=== PATIENT | male | born 1950 | race Caucasian/White ===

== ENCOUNTER → 2020-05-14 14:09 | Outpatient (CLI) | payer OTHER, SELFPAY ==
[2020-05-15 14:19] LABS: COVID19 Sendout Not Detected (Not Detect)
== END ==
PROVIDERS: Family Provider Family Medicine; PCP Family Medicine; Visit Provider Physician Assistant
DX: Z11.59 Encounter for screening for other viral diseases (principal)
CPT/HCPCS: 87635

== ENCOUNTER 2020-05-17 12:00 | Day surgery (SDC) | payer OTHER, SELFPAY ==
--- NOTE | 2020-05-17 11:00 | P.HP_ITS ---
History of Present Illness History of Present Illness Date Patient Seen: 05/17/20 Chief complaint: SDC Narrative: 69 year old male comes in today for consideration of a screening colonoscopy. Last colonoscopy in 2008 indicated for screening, showed an ascending colon tubular adenoma. He had a recent bike trip 6 weeks ago that resulted in a diarrheal illness after consuming raw oysters. Stool studies negative. CBC, CMP ESR on 04/24/20 significant for an elevated white count at 17.8 and an elevated sed rate at 76. He also had a very minor drop in hemoglobin/hematocrit at 13.1/38.7 respectively. Diarrhea is now resolved after antibiotics. Otherwise, There have been no lower GI symptoms suggesting disease such as bleeding, abdominal pain or anemia. There's been no family history of colon cancer or colon polyps. Overall health issues have been stable, including no major cardiac events for at least 6 weeks. PCP: Dr. Crawley Past medical history: CKD stage 3 Diarrhea erectile dysfunction Hyperlipidemia Depression Carpal syndrome gout Obstructive sleep apnea idiopathic urticaria Past surgical history: Right lateral compartment arthroplasty, 2010 Family history: Noncontributory Social history: , retired. Meds Home Medications and Allergies Home Medications Medication Instructions Recorded Confirmed Type ROSUVASTATIN CALCIUM (Crestor) 20 mg PO Q DAY #0 03/05/10 History Resmed Airsense 10 CPAP #1 ea 02/01/19 02/01/19 History indomethacin 50 mg PO TID 05/17/20 05/17/20 History rosuvastatin [Crestor] 20 mg PO DAILY 05/17/20 05/17/20 History sertraline 25 mg PO DAILY 05/17/20 05/17/20 History sildenafil 20 mg PO DAILY 05/17/20 05/17/20 History Allergies Allergy/AdvReac Type Severity Reaction Status Date / Time No Known Drug Allergies Allergy Verified 05/17/20 13:27 Review of Systems Review of Systems ROS: Yes All systems reviewed with the patient and are negative except as otherwise documented Exam Narrative Exam Narrative: GENERAL: Alert and oriented, appearing stated age and in no acute distress. HEENT: Head normocephalic/atraumatic. Pupils equal, round, and reactive to light and accomodation. Extraocular muscles intact. Tympanic membranes clear. Nasal mucosa moist, septum midline. Oral mucosa moist, no lesions. Neck soft and supple, no lymphadenopathy. LUNGS: Clear to ausculation bilaterally, no wheezes, rhonchi or rales. CV: Normal S1 and S2 with regular rate and rhythm, no audible murmurs, rubs or gallops. ABDOMEN: Soft, non-tender, non-distended, no organomegaly. Positive bowel susan nds. EXTREMITIES: No clubbing, cyanosis, or edema. NEURO: Cranial nerves II through XII grossly intact, no focal deficits. PSYCH: Alert and oriented x 3. SKIN: No concerning lesions. Assessment & Plan Assessment & Plan narrative: 1. History of colon polyps 2. Screening for colon cancer Plan for colonoscopy. The nature and character of the procedure as well as anticipated results were discussed. The possibility of not completing the procedure was also discussed. Possible complications including aspiration pneumonia, bleeding, perforation and reaction to medications either for sedation or preparation and missed lesions were discussed. Questions were answered and proceeding to the colonoscopy was elected. Informed consent signed. I sincerely appreciate the referral allowing me to participate in this patient's care. Please contact me with any questions or concerns.
--- NOTE | 2020-05-17 11:10 | PM.OP.ENDO ---
Operative Date/Time/Diagnoses Date of procedure: 05/17/20 Procedure Notes SCOAP/Timeout: 2:29 p.m. Procedure in detail: ENDOSCOPIST: Kellee Catherine MD Sedation RN: Lesley Lindsay RN Sedation start time: 2:30 p.m. Sedation end time: 2:50 p.m. PROCEDURE: Colonoscopy INDICATIONS: 1. History of colon polyps 2. Screening for colon cancer MEDICATION: Levsin 0.125 mg sublingual, incremental doses of Versed and fentanyl until appropriate level sedation achieved. ASA CLASS: 2 CECAL WITHDRAWAL TIME: 8 minutes COMPLICATIONS: None. EXTENT OF PROCEDURE: Cecum. QUALITY OF PREP: Good with portions of liquid stool. PROCEDURE: Prior to insertion of the colonoscope, a digital rectal examination was accomplished with circumferential palpation of the distal rectal mucosa without significant findings being noted. The high-definition colonoscope was passed into the rectum in the usual fashion and advanced over to the cecum without difficulty. The ileocecal valve, appendiceal stoma, and medial wall all could be inspected and no abnormalities were seen. ASCENDING COLON: As the colonoscope was withdrawn, care was taken to expose and inspect the haustral folds and no abnormalities were seen. HEPATIC FLEXURE: Normal, no polyps, diverticula or other abnormalities. TRANSVERSE COLON: Normal, no polyps, diverticula or other abnormalities. DESCENDING COLON: Normal, no polyps, diverticula or other abnormalities. SIGMOID COLON: Normal, no polyps, diverticula or other abnormalities. RECTUM: Normal. J maneuver was produced, prominent veins were noted. There was no significant perianal disease. The J maneuver was broken. The remainder of the rectum was inspected and there was no external hemorrhoid disease. The scope was withdrawn. IMPRESSION: 1. Normal colonoscopy 2. Prominent rectal veins PLAN: 1. Repeat colonoscopy in 5 years secondary to history of colon polyps. The possibility of a missed lesion including a malignancy has been discussed with the patient previously. Potential alarm symptoms have been discussed and should be reported immediately. Post-procedure Recommendations: Colonscopy in 5 years Follow up: as needed
[2020-05-17] MEDS: LACTATED RINGERS 1,000 ML 200 ML IV (13:26)
[2020-05-17] MEDS: HYOSCYAMINE 0.125 MG TABLET PO (13:26)
[2020-05-17 13:35] VITALS: BP 127/73; PULSE 62; RESP 16; TEMP 36.6; O2SAT 97; BMI 30.4
--- NOTE | 2020-05-17 13:55 | SUR.PREOP ---
Patient states that he registered early because his results from his prep were brown. Patient states he called Dr Catherine's office to voice concern. Patient states that his results are brown but nothing solid. Notified Dr Catherine.
[2020-05-17] MEDS: MIDAZOLAM 5 MG/5 ML VIAL IV (14:30)
[2020-05-17] MEDS: fentaNYL 250 MCG/5 ML INJ IV (14:30)
[2020-05-17 14:56] VITALS: BP 113/70; PULSE 69; RESP 16; TEMP 36.7; O2SAT 97
[2020-05-17 15:01] VITALS: BP 124/68; PULSE 61; RESP 17; TEMP 36.6; O2SAT 97
[2020-05-17 15:07] VITALS: BP 120/71; PULSE 58; RESP 15; TEMP 36.2; O2SAT 97
[2020-05-17 15:10] VITALS: BP 120/71; PULSE 58; RESP 17; TEMP 36.4; O2SAT 96
== END 2020-05-17 15:26 | disposition home or self-care (01) ==
PROVIDERS: PCP Family Medicine; Referring Provider Family Medicine; Visit Provider Student in an Organized Health Care Education/Training Program
PROC: 0DJD8ZZ Inspection of Lower Intestinal Tract, Via Natural or Artificial Opening Endoscopic (ICD-10-PCS; CPT 45378; principal; 2020-05-17 14:30)
DX: Z12.11 Encounter for screening for malignant neoplasm of colon (principal); N18.3 Chronic kidney disease, stage 3 (moderate); G47.33 Obstructive sleep apnea (adult) (pediatric); F32.9 Major depressive disorder, single episode, unspecified; E78.5 Hyperlipidemia, unspecified
CPT/HCPCS: G0121; J2250; J3010

== ENCOUNTER → 2020-09-13 10:25 | Outpatient (CLI) | payer OTHER, SELFPAY ==
[2020-09-13 11:10] LABS: COVID19 -Nasal RAPID Negative (Negative)
== END ==
PROVIDERS: PCP Family Medicine; Visit Provider Surgery
DX: Z20.822 Contact with and (suspected) exposure to COVID-19 (principal); Z01.812 Encounter for preprocedural laboratory examination
CPT/HCPCS: 87635; C9803

== ENCOUNTER 2020-09-16 06:44 | Day surgery (SDC) | payer OTHER, SELFPAY ==
[2020-09-16] VITALS (7 sets, daily range): BP systolic 117–142; BP diastolic 70–86; PULSE 59–68; RESP 10–17; TEMP 36.3–36.9; O2SAT 92–97; BMI 31.5
--- NOTE | 2020-09-16 | PATH_ITS ---
[facility] Accession Number: [id number] . 01 Material submitted: . duodenum - DUODENUM BIOPSY . 02 Diagnosis: Duodenum, Biopsy: Duodenal mucosa with no diagnostic abnormality. Negative for active inflammation, features of sprue, dysplasia, or malignancy. . MRV 09/18/2020 1417 Local . 02 Electronically signed: . Ariel Kraft MD, PhD, Pathologist NPI- [id number] . 01 Gross description: . The specimen is received in formalin, labeled duodenum and consists of two cobian-pink fragments of soft tissue, measuring 0.4 x 0.3 x 0.2 cm in aggregate. The specimen is entirely submitted in cassette A1. ([id number]) /[facility] 09/17/2020 1749 Local . 02 Pathologist provided ICD-10: R13.10, R10.9 . 02 CPT . 244253 Performed at: 01 [facility] [address] [place] [address], [place], [place] [id number] MD Josiah Lamar MD Phone: [phone] Performed at: 02 [facility] [address] [place], [place] [id number] MD Sophie Cerda MD Phone: [phone]
[2020-09-16] MEDS: LACTATED RINGERS 1,000 ML 200 ML IV (07:14)
--- NOTE | 2020-09-16 07:52 | PM.PREOP ---
Pre-operative Note COVID-19 COVID-19 status: Negative Interval Note History & Physical reviewed/Exam performed by Physician: Yes Changes to H&P: No
[2020-09-16] MEDS: fentaNYL 250 MCG/5 ML INJ IV (07:56)
[2020-09-16] MEDS: MIDAZOLAM 5 MG/5 ML VIAL IV (07:56)
[2020-09-16] MEDS: LIDOCAINE 4% SOLN 50 ML 20 ML TOP (07:59)
--- NOTE | 2020-09-16 08:11 | PM.OP.ENDO ---
Operative Date/Time/Diagnoses Date of procedure: 09/16/20 Time of procedure: 08:11 Pre-op diagnosis: Dysphagia Post-op diagnosis: other (Oral candidiasis) Procedure & Clinicians Study performed: Esophagoduodenoscopy Same procedure as scheduled: Yes Indications: Dysphagia Surgeon: Konstantin Maurer Procedure Notes Procedure in detail: Patient placed in left lateral decubitus position. Time out was performed. Procedural sedation was administered with Versed and Fentanyl. A bite block was placed. the scope was inserted into the mouth. In the posterior pharynx oral candidiasis was observed. The scope was advanced through the esophagus and into the stomach. The pylorus was intubated. The duodenum appeared mildly inflamed a some random biopsies of the duodenum were obtained. The scope was retroflexed within the stomach and there was a small hiatal hernia. No ulcers, or gastritis. The scope was withdrawn into the esophagus the Z line was seen at 40 cm from the incisions. There was no Celaya's esophagitis or masses or strictures. Stomach was desufflated and scope removed. Patient tolerated procedure well. Specimen(s): other (Duodenal biopsy) Complications: none Impression: Oral candidiasis Post-procedure Recommendations: Start medication(s) (Nystatin) Disposition: same day surgery
== END 2020-09-16 08:59 | disposition home or self-care (01) ==
PROVIDERS: PCP Family Medicine; Referring Provider Surgery; Visit Provider Surgery
PROC: 0DJ08ZZ Inspection of Upper Intestinal Tract, Via Natural or Artificial Opening Endoscopic (ICD-10-PCS; CPT 43235; principal; 2020-09-16 07:45)
DX: B37.0 Candidal stomatitis (principal); K44.9 Diaphragmatic hernia without obstruction or gangrene
CPT/HCPCS: 43239; J2250; J3010

== ENCOUNTER → 2020-10-30 12:47 | Outpatient (CLI) | payer MEDICARE, SELFPAY ==
[2020-10-30] MEDS: COVID-19 VACC, Ad26(JANSSEN)/PF 0.5 ML IM (13:01)
== END ==
PROVIDERS: PCP Family Medicine; Visit Provider Internal Medicine
DX: Z23 Encounter for immunization (principal)
CPT/HCPCS: 0031A; 91303

== ENCOUNTER → 2021-07-03 10:59 | Outpatient (CLI) | payer OTHER, SELFPAY ==
[2021-07-04 09:03] LABS: HSV Type 1 AB, IgG <0.91 index (0.00-0.90)
== END ==
PROVIDERS: PCP Family Medicine; Referring Provider Family Medicine; Visit Provider Family Medicine
DX: Z20.2 Contact with and (suspected) exposure to infections with a predominantly sexual mode of transmission (principal)
CPT/HCPCS: 36415; 86695; 86696

== ENCOUNTER → 2022-01-27 09:46 | Outpatient (CLI) | payer OTHER, SELFPAY ==
--- NOTE | 2022-01-27 09:49 | DI.RAD.S_ITS ---
PROCEDURE: FL BARIUM SWALLOW W SPEECH INDICATIONS: Dysphagia, unspecified COMPARISON: None. TECHNIQUE: Examination was conducted in conjunction with speech pathology per standard protocol. In the lateral projection, filming was performed of the patient swallowing. AP projection filming may also be performed with patient swallowing. COMPARISON: FINDINGS: Function: The oral preparatory phase appears normal, with proper containment. The subsequent oral propulsive phase, pharyngeal phase, and esophageal phase of swallowing also appear normal with all proffered substances. No laryngotracheal penetration or aspiration. No pathologic vallecular pooling. Morphology: No cricopharyngeal bar is identified. No cervical esophageal webs. No Zenker's diverticulum. There is moderate narrowing of the distal esophagus, with transient holdup of an orally administered barium tablet. IMPRESSION: 1. No evidence of laryngeal penetration, or aspiration. 2. Distal esophageal stricture. Endoscopy is recommended to exclude underlying neoplasm. Dictated by: Saniya Martinez M.D. on 01/27/2022 at 11:11 Approved by: Saniya Martinez M.D. on 01/27/2022 at 11:11
--- NOTE | 2022-01-27 11:19 | ST.SWALLOW ---
Visit Care Team Role Provider Type Norm Reis MD Attending Provider Physician Primary Care Provider Referring Provider Specialty: Family Practice Address: [address] [place] [address], [address], [place], [address] Email: [email or web address] Modified Barium Swallow Study SENIOR TEST ANALYST Modified Barium Swallow Study Start: 01/27/22 11:00 Freq: Status: Active Protocol: Document 01/27/22 11:00 ZS (Rec: 01/27/22 11:19 ZS [id number]) Modified Barium Swallow Study Total Time Visit Start Time 10:20 Visit Stop Time 10:40 Total Visit Minutes 20 Visit Information Insurance Information [place] Referral Referring Physician Dr. Norm Reis Reason for Referral Food gets stuck Setting Setting Outpatient Care Patient Information Identification Type Name Patient History Cat is a 71 year old male reporting difficulty swallowing over the past few weeks. He stated food gets stuck in his esophagus and he feels like he needs to belch but is unable to. Cat stated swallowing has improved since his PCP prescribed prilosec. Subjective Observations Cat arrived on time and was agreeable to participate in modified barium swallow study. Described procedure and process and answered all patient questions regarding study. Patient Positioning Position View Lat-A/P Imaging Lateral View Textures Administered Trials Presented Thin Liquid via Cup,[place] Liquid via Cup,Regular Textures Oral Phase Source: MBSIMP (TM) (C) Bolus Specific Scoring Grid Lip Closure No Impairment (WNL) Tongue Control During Bolus Hold Mild Impairment Bolus Prep/Mastication No Impairment (WNL) Bolus Transport/Lingual Motion No Impairment (WNL) A/P Lingual Propulsion Delay No Oral Residue Mild Impairment Residue Clearing Mild Impairment Nasal Regurgitation No Additional Oral Phase Observations No anterior loss of bolus observed. Minimal loss of bolus to valleculae and base of tongue during tongue hold. A/P propulsion of bolus and mastication was WNL. Mild oral residue observed following swallow. Pt cleared oral residue with a second swallow, but demonstrated difficulty clearing residue from base of tongue. Pharyngeal Phase Source: MBSIMP (TM) (C) Bolus Specific Scoring Grid Delayed Initiation of Pharyngeal Swallow No Soft Palate Elevation No Impairment (WNL) Tongue Base Strength/Range of Motion Minimal Impairment Residue Along the Tongue Base Yes Clearance of Residue Along Tongue Base Mild Impairment Laryngeal Elevation No Impairment (WNL) Anterior Hyoid Movement Minimal Impairment Epiglottic Range of Motion No Impairment (WNL) Vallecular Residue Yes Clearance of Vallecular Residue WFL Laryngeal Vestibular Closure No Impairment (WNL) Pharyngeal Stripping Wave WFL Pharyngeal Contraction No Impairment (WNL) Posterior Pharyngeal Wall Residue No Upper Esophageal Sphincter Opening No Impairment (WNL) Residue in the Pyriform Sinuses No Esophageal Clearance Upright Position Moderate Impairment Additional Pharyngeal Phase Observations Pt exhibited timely initiation of pharyngeal swallow, stripping wave WNL, and minimal pharyngeal residue, which he cleared spontaneously with a second swallow. Anterior movement of hyoid was minimally reduced, though still WFL. Laryngeal vestibular closure was WNL across all trials. During consecutive swallows of thin liquids, pt exhibited 3 instances of penetration (PAS 2), often occurring immediately following a swallow with ejection of liquid from airway when laryngeal vesitbule closed for next swallow. No instances of penetration observed with single swallows of thin or nectar thick liquids and no instances of penetration observed with consecutive swallows of nectar thick liquid. A/P View Textures Administered Trials Presented Thin Liquid via Cup,Barium Tablet A/P View Observations Pharyngeal Contraction No Impairment (WNL) Esophageal Function Slowed Clearing,Reverse Peristalsis,Narrowing Esophageal Clearance Upright Position Moderate Impairment Additional Observations Pt exhibited slowed clearing of liquid through esophagus and narrowing was observed near gastroesophageal junction . Barium tablet was unable to pass through junction and was present at the end of the study. Mild backflow observed with thin liquids in addition to slowed clearing. Clinical Impressions Findings The pt presents with swallow function WFL. Some instances of penetration observed, but these were specific to consecutive swallows, occurred primarily with residue, and pt exhibited excellent airway protection during single swallow trials. Pt demonstrated spontaneous use of double swallow to clear pharyngeal residue. Recommend single sips to increase swallow safety and referral to GI regarding esophageal clearance. Rehabilitation Potential Excellent Patient Appropriate for Therapy No Recommendations Diet Liquids Order Thin Diet Order Regular Medication Recommendation As Tolerated Additional Dietary Needs Single Sips Aspiration Precautions Recommended Precautions Upright at 90 Degrees,Small Bites/Sips,Double Swallow Treatment Plan Recommended Referrals GI Consult Compensatory Strategies Recommendations Sitting Upright (90 deg), Double Swallow,Small Bites and Sips
== END ==
PROVIDERS: PCP Family Medicine; Referring Provider Family Medicine; Visit Provider Family Medicine
DX: K22.2 Esophageal obstruction (principal); R13.10 Dysphagia, unspecified
CPT/HCPCS: 74230; 92611

== ENCOUNTER → 2022-02-26 08:59 | Outpatient (CLI) | payer OTHER, SELFPAY ==
[2022-02-26 10:55] LABS: COVID19 -Nasal RAPID Negative (Negative)
== END ==
PROVIDERS: PCP Family Medicine; Visit Provider Surgery
DX: Z20.822 Contact with and (suspected) exposure to COVID-19 (principal); Z01.812 Encounter for preprocedural laboratory examination
CPT/HCPCS: 87635; C9803

== ENCOUNTER 2022-02-27 12:42 | Day surgery (SDC) | payer OTHER, SELFPAY ==
--- NOTE | 2022-02-27 | PATH_ITS ---
[facility] Accession Number: [id number] . 01 Material submitted: . esophagus - ESOPHAGUS . 01 Clinical history: . dysphagia,unspecified . 01 Diagnosis: Esophagus, Biopsy: Squamous epithelium with no diagnostic abnormality. Intraepithelial eosinophils are not increased. Negative for dysplasia and malignancy. . MRV 03/02/2022 1238 Local . 01 Electronically signed: . Sophie Cerda MD, Pathologist NPI- [id number] . 01 Gross description: . ESOPHAGUS: Received in formalin are 2 fragment(s) of cobian, soft tissue measuring 0.3 x 0.3 x 0.1 cm to 0.3 x 0.3 x 0.1 cm submitted entirely in 1 cassette(s) /CPE 02/28/2022 0453 Local . 01 Pathologist provided ICD-10: R13.10 . 01 CPT . 045447 Specimen Comment: A courtesy copy of this report has been sent to [phone] Performed at: 01 [facility] [address] [place] [address], [place], [place] [id number] MD Josiah Lamar MD Phone: [phone]
[2022-02-27 13:26] VITALS: BMI 31.0
[2022-02-27 13:39] VITALS: BP 118/67; PULSE 54; RESP 16; TEMP 35.9; O2SAT 95
[2022-02-27] MEDS: LACTATED RINGERS 1,000 ML 200 ML IV (13:55)
--- NOTE | 2022-02-27 14:29 | PM.PREOP ---
Pre-operative Note Interval Note History & Physical reviewed/Exam performed by Physician: Yes Changes to H&P: No
--- NOTE | 2022-02-27 14:51 | PM.OP.EGD ---
Operative Date/Time/Diagnoses Date of procedure: 02/27/22 Time of procedure: 14:51 Pre-op diagnosis: Esophageal dysphagia Post-op diagnosis: same Procedure & Clinicians Study performed: Esophagoduodenoscopy Same procedure as scheduled: Yes Indications: Esophageal dysphagia Surgeon: Konstantin Maurer Procedure Notes Procedure in detail: Patient was brought to the operating room and placed supine.. Time out was performed. Anesthesia admitted sedation. A bite block was placed. the scope was inserted into the mouth and advanced through the esophagus and into the stomach. The esophagus was normal in its appearance there was no stricture the scope passed easily down the esophagus and into the stomach. The pylorus was intubated and the duodenum was normal to the 2nd portion. The scope was retroflexed within the stomach and there was a no hiatal hernia. No ulcers, or gastritis. The scope was withdrawn into the esophagus the Z line was seen at 40 cm from the incisions. Biopsies of the esophagus were taken with forceps. There was no Celaya's esophagitis or masses or strictures. Stomach was desufflated and scope removed. Patient tolerated procedure well. Specimen(s): other (Esophagus biopsy) Impression: Normal esophagoduodenoscopy Post-procedure Plan for aftercare: Biopsies of esophagus were taken. If biopsies are unremarkable next step is esophageal manometry. Disposition: same day surgery
[2022-02-27 14:58] VITALS: BP 150/70; PULSE 50; RESP 16; TEMP 36.9; O2SAT 94
[2022-02-27 15:00] VITALS: BP 110/66; PULSE 50; RESP 16; O2SAT 98
[2022-02-27 15:30] VITALS: BP 110/71; PULSE 48; RESP 16; TEMP 36.1; O2SAT 96
== END 2022-02-27 15:38 | disposition home or self-care (01) ==
PROVIDERS: PCP Family Medicine; Referring Provider Surgery; Visit Provider Surgery
PROC: 0DJ08ZZ Inspection of Upper Intestinal Tract, Via Natural or Artificial Opening Endoscopic (ICD-10-PCS; CPT 43235; principal; 2022-02-27 14:45)
DX: R13.10 Dysphagia, unspecified (principal); G47.33 Obstructive sleep apnea (adult) (pediatric)
CPT/HCPCS: 43239; J2250; J2704; J3010

== ENCOUNTER → 2024-02-21 14:48 | Outpatient (CLI) | payer OTHER, SELFPAY ==
--- NOTE | 2024-02-21 14:53 | DI.RAD.S_ITS ---
PROCEDURE: XR WRIST RT MIN 3V INDICATIONS: RT WRIST FRACTURE TECHNIQUE: 4 views of the wrist were acquired. COMPARISON: None. FINDINGS: Bones: Fracture of the radial styloid. There is intra-articular extension. Mild displacement. Fracture is comminuted. No dislocations. No suspicious bony lesions. Degenerative changes at the 1st CMC joint. Soft tissues: No suspicious soft tissue calcifications. IMPRESSION: Comminuted fracture at the radial styloid. Dictated by: Dimitri Montero M.D. on 02/21/2024 at 17:57 Approved by: Dimitri Montero M.D. on 02/21/2024 at 17:58
--- NOTE | 2024-02-21 14:53 | DI.RAD.S_ITS ---
PROCEDURE: XR FOOT RT MIN 3V INDICATIONS: RT FOOT PAIN TECHNIQUE: 3 views of the foot were acquired. COMPARISON: [facility], , FOOT 3V RIGHT, 05/17/2014, 9:35. FINDINGS: Bones: No fractures or dislocations. No suspicious bony lesions. Soft tissues: No tibiotalar joint effusion. Achilles tendon appears normal. IMPRESSION: No acute bony abnormality. Clinically indicated consider follow-up radiographs 10-14 days. Dictated by: Dimitri Montero M.D. on 02/21/2024 at 22:43 Approved by: Dimitri Montero M.D. on 02/21/2024 at 22:44
--- NOTE | 2024-02-21 14:53 | DI.RAD.S_ITS ---
PROCEDURE: XR FOOT LT MIN 3V INDICATIONS: LT FOOT PAIN TECHNIQUE: 3 views of the foot were acquired. COMPARISON: [facility], , FOOT 3V RIGHT, 05/17/2014, 9:35. FINDINGS: Bones: 5th digit distal phalanx mildly displaced fracture. No dislocations. No suspicious bony lesions. Soft tissues: No tibiotalar joint effusion. Achilles tendon appears normal. IMPRESSION: 5th digit distal phalanx mildly displaced fracture. Dictated by: Dimitri Montero M.D. on 02/21/2024 at 22:44 Approved by: Dimitri Montero M.D. on 02/21/2024 at 22:47
== END ==
LOC: RAD 14:51
PROVIDERS: PCP Family Medicine; Referring Provider Family Medicine; Visit Provider Family Medicine
DX: S92.532A Displaced fracture of distal phalanx of left lesser toe(s), initial encounter for closed fracture (principal); S52.511A Displaced fracture of right radial styloid process, initial encounter for closed fracture; S92.354A Nondisplaced fracture of fifth metatarsal bone, right foot, initial encounter for closed fracture; M79.672 Pain in left foot
CPT/HCPCS: 73100; 73630

== ENCOUNTER → 2024-03-10 12:08 | Outpatient (CLI) | payer OTHER, SELFPAY ==
--- NOTE | 2024-03-10 12:11 | DI.RAD.S_ITS ---
PROCEDURE: XR THORACIC SPINE 3V INDICATIONS: BACK PAIN TECHNIQUE: 3 views of the thoracic spine were acquired. COMPARISON: None. FINDINGS: Bones: Chronic appearing anterior wedge compression deformity at T11 level is seen with up to 30% loss of T11 vertebral body height anteriorly. Degenerative endplate changes are noted throughout thoracic spine. No gross acute vertebral body compression fracture. No suspicious bony lesions. 12 pairs of ribs are noted, and appear intact where visualized. Soft tissues: No paravertebral stripe thickening. IMPRESSION: [id number] degenerative disc disease throughout thoracic spine. Chronic appearing anterior wedge compression deformity at T11 level. No acute compression fracture or significant spondylolisthesis. Dictated by: Jimbo Quinn M.D. on 03/10/2024 at 16:34 Approved by: Jimbo Quinn M.D. on 03/10/2024 at 16:36
== END ==
LOC: RAD 12:10
PROVIDERS: PCP Family Medicine; Referring Provider Family Medicine; Visit Provider Family Medicine
DX: M51.34 Other intervertebral disc degeneration, thoracic region (principal); M43.8X4 Other specified deforming dorsopathies, thoracic region; M54.9 Dorsalgia, unspecified; G89.29 Other chronic pain
CPT/HCPCS: 72072

== ENCOUNTER → 2024-08-07 10:44 | Outpatient (CLI) | payer OTHER, SELFPAY ==
--- NOTE | 2024-08-07 | DI.RAD.S_ITS ---
PROCEDURE: XR KNEE RT 1TO2V INDICATIONS: PAIN TECHNIQUE: 3 views of the knee were acquired. COMPARISON: [facility], , XR KNEE STANDING BI, 08/07/2024, 10:53. FINDINGS: Bones: Lateral right knee arthroplasty similar to prior. Mild left knee degenerative changes partially seen. Soft tissues: There is slight ossification adjacent to the inferior trochlea on lateral view. Moderate effusion. IMPRESSION: There is slight soft tissue ossification inferior to the femoral trochlea seen on lateral view. Lateral right knee unicondylar arthroplasty is in expected position. Moderate joint effusion. Dictated by: Wili Ackerman M.D. on 08/07/2024 at 13:30 Approved by: Wili Ackerman M.D. on 08/07/2024 at 13:32
--- NOTE | 2024-08-07 10:47 | DI.RAD.S_ITS ---
PROCEDURE: XR KNEE STANDING BI INDICATIONS: KNEE PAIN TECHNIQUE: Standing AP views of the knee(s) COMPARISON: [facility], CR, XR KNEE RT 1TO2V, 08/07/2024, 10:53. FINDINGS: Mild osseous demineralization. No acute fracture or dislocation. Status post right knee lateral unicompartmental knee arthroplasty without hardware complication on this single AP view. Mild right medial compartment osteoarthritis. The left knee joint spaces are preserved. IMPRESSION: Mild right knee osteoarthritis. Dictated by: Shahid Aguillon M.D. on 08/07/2024 at 13:31 Approved by: Shahid Aguillon M.D. on 08/07/2024 at 13:32
== END ==
PROVIDERS: PCP Family Medicine; Referring Provider Family Medicine; Visit Provider Family Medicine
DX: M17.11 Unilateral primary osteoarthritis, right knee (principal); M25.461 Effusion, right knee; M25.561 Pain in right knee; G89.29 Other chronic pain; Z96.651 Presence of right artificial knee joint
CPT/HCPCS: 73560; 73565

== ENCOUNTER → 2025-01-03 08:17 | Outpatient (CLI) | payer OTHER, SELFPAY ==
--- NOTE | 2025-01-03 08:19 | DI.US.S_ITS ---
PROCEDURE: US SCROTUM INDICATIONS: MASS IN LT TESTICLE TECHNIQUE: Real-time scanning was performed of the scrotum and testicles, with image documentation. Color and pulse Doppler interrogation was performed of both testicles. COMPARISON: None. FINDINGS: Right: Testicle is normal in size at 4.4 x 1.7 x 3.4 cm, and homogenous in echotexture. Epididymis is normal in overall size and morphology. No hydrocele or varicoceles. Overlying scrotal skin is normal in thickness. Left: Testicle is normal in size at 4.2 x 1.8 x 2.7 cm, and homogeneous in echotexture. Epididymis is normal in overall size. Left epididymal head is prominent and multilobulated on likely related to underlying complex cyst or spermatocele. No hydrocele or varicoceles. Overlying scrotal skin is normal in thickness. Doppler: Color and pulse Doppler demonstrate normal and symmetric arterial flow in both testicles. IMPRESSION: Prominent left epididymal head with multilobulated contours likely related to underlying complex cyst or spermatocele. No testicular type mass. ] Dictated by: Carolyn Huang MD, PhD on 01/03/2025 at 9:47 Approved by: Carolyn Huang MD, PhD on 01/03/2025 at 10:01
== END ==
LOC: US 08:18
PROVIDERS: PCP Family Medicine; Referring Provider Family Medicine; Visit Provider Family Medicine
DX: N50.89 Other specified disorders of the male genital organs (principal)
CPT/HCPCS: 76870; 93975

== ENCOUNTER 2025-05-01 16:06 | Emergency (ER) | payer OTHER, SELFPAY ==
[2025-05-01 16:24] VITALS: BP 118/67; PULSE 68; RESP 16; TEMP 36.7; O2SAT 96; BMI 27.3
[2025-05-01] MEDS: PROPARACAINE 0.5% OPHTH SOL 1 DROPS EYE-LEFT ×2 (17:29→18:21)
[2025-05-01] MEDS: ERYTHROMYCIN OPHTH 1 GM OINT 1 APPLIC EYE-RIGHT (18:20)
[2025-05-01] MEDS: FLUORESCEIN 1 MG STRIP EYE-LEFT (18:20)
--- NOTE | 2025-05-01 18:20 | ED.GENADULT ---
HPI - General Adult General Chief complaint: Eye Problems Stated complaint: Foreign object in Lt eye Time Seen by Provider: 05/01/25 16:41 Source: patient Mode of arrival: Family Vehicle History of Present Illness HPI narrative: 74-year-old gentleman with a history of hyperlipidemia was using a saw to cut off a metal bolt without protective eyewear in place. [place] some type of the debris landing in his left eye with immediate pain but no visual changes. No headaches. The eye was rinsed immediately with moderate volume of water and still hurting. He comes in for further evaluation no other complaints Related Data Home Medications ?Medication ?Instructions ?Recorded ?Confirmed Resmed Airsense 10 CPAP #1 ea 02/01/19 02/18/22 indomethacin 50 mg capsule 50 mg PO TID 05/17/20 02/27/22 rosuvastatin 20 mg tablet (Crestor) 20 mg PO DAILY 05/17/20 02/27/22 sertraline 50 mg tablet 25 mg PO DAILY 05/17/20 02/27/22 sildenafil 25 mg tablet 20 mg PO DAILY 05/17/20 02/27/22 omeprazole 20 mg capsule,delayed 20 mg PO DAILY 09/12/20 02/27/22 release Allergies Allergy/AdvReac Type Severity Reaction Status Date / Time No Known Drug Allergies Allergy Verified 05/01/25 16:29 Review of Systems Review of Systems Narrative: Pertinent positive and negative findings as per HPI Patient History Medical History Hearing difficulty Hx of gout Hx of hyperlipidemia Surgical History Hx of Achilles tendon repair Family History Mother Breast cancer Sister Breast cancer Sister Breast cancer Social History marital status: unknown household members: none occupational status: employed alcohol intake: current substance use type: does not use alcohol intake frequency: 0-2 drinks per day Exam Initial Vital Signs Initial Vital Signs: Vital Signs Temperature 98.1 F 05/01/25 16:24 Pulse Rate 68 05/01/25 16:24 Respiratory Rate 16 05/01/25 16:24 Blood Pressure 118/67 05/01/25 16:24 Pulse Oximetry 96 05/01/25 16:24 Oxygen Delivery Method Room Air 05/01/25 16:24 General: Alert appropriate in no acute distress Eye exam: Slightly injected left sclera. No obvious abnormalities on gross exam or with microscopic exam prior to fluorescein staining. Eyes anesthetized and with fluorescein staining there is a small punctate area at approximately 8:00 on the cornea. Using an 18 gauge needle this was very gently removed. It appears to be concrete debris rather than any metal debris. Patient tolerated that procedure well. Respiratory: Able to speak in full sentences, no obvious respiratory distress Skin: No obvious rashes, warm and dry Neurologic: Grossly intact no obvious asymmetries or abnormalities Psych: appropriate insight and affect, cooperative Course Orders Ordered: Fluorescein Sodium (Fluorescein 1 Mg Strip) 1 mg EYE-LEFT NOW PRN PRN Reason: Foreign body Proparacaine HCl (Proparacaine 0.5% Ophth Johanna) 1 drops EYE-LEFT PRN PRN PRN Reason: foreign body Last Admin: 05/01/25 17:29 Dose: 1 drop Documented By: JELENA Discontinued Medications Erythromycin (Erythromycin Ophth 1 Gm Oint) 1 applic EYE-RIGHT NOW ONE Stop: 05/01/25 18:17 Vital Signs Vital signs: Vital Signs - 8 hr 05/01/25 16:24 Temperature 98.1 F Pulse Rate 68 Respiratory Rate 16 Blood Pressure 118/67 Pulse Oximetry 96 Oxygen Delivery Method Room Air Medical Decision Making [facility] Narrative Medical decision making narrative: 74-year-old gentleman with debris ending up in his left eye earlier today. Still feels like there is a foreign body in the eye after flushing home. No visual changes or headache Eyes anesthetized and with fluorescein staining there is a small punctate area at approximately 8:00 on the cornea. Using an 18 gauge needle this was very gently removed. It appears to be concrete debris rather than any metal debris. Patient tolerated that procedure well. Visual acuity was appropriate after procedure Erythromycin ointment is applied to the eye. Anticipated course of recovery, suggestion to use the ointment tonight and 1st thing in the morning are all reviewed. Should you have worsening pain, visual changes or obvious abnormalities now visualized with naked exam did recommend ophthalmology follow up. There was no indication for hospitalization and he is safe for discharge Discharge Plan Departure Patient Disposition: Home Clinical Impression: Acute foreign body of cornea Qualifiers: Encounter type: initial encounter Laterality: left Qualified Code(s): T15.02XA - Foreign body in cornea, left eye, initial encounter Instructions: DI for Corneal Foreign Body-Eye Activity Restrictions/Additional Instructions: Thank you for coming in today It does look like there was a small bit of debris that was imbedded in your cornea, the superficial layer of your eye. I was able to dislodge that bit of debris and you should be feeling significantly better within 24 hours. We applied some erythromycin ointment to the eye. I would recommend applying again before you go to bed, if you get up in the night to go to the bathroom apply again. If you notice that you are having increasing pain, vision difficulties or obvious changes to the area of concern you do need to see an eye doctor tomorrow. Prescriptions: No Action omeprazole 20 mg capsule,delayed release(DR/EC) 20 mg PO DAILY sildenafil 25 mg Tablet 20 mg PO DAILY indomethacin 50 mg Capsule 50 mg PO TID sertraline 50 mg Tablet 25 mg PO DAILY rosuvastatin [Crestor] 20 mg Tablet 20 mg PO DAILY (DME) Resmed Airsense 10 CPAP Qty: 1 Dose Instruction: As directed Patient Comments: Pressure: 7-12 cmH2O DME: [facility] Instructions: As directed Referrals: Norm Reis MD [Primary Care Provider, Family Practice] Stand Alone Forms: Patient Portal/API
[2025-05-01 18:25] VITALS: BP 131/73; PULSE 56; RESP 18; O2SAT 97
== END 2025-05-01 18:58 | disposition home or self-care (01) ==
PROVIDERS: Emergency Provider Emergency Medicine; PCP Family Medicine
DX: T15.02XA Foreign body in cornea, left eye, initial encounter (principal)
CPT/HCPCS: 99282